=== PATIENT | male | born 1935 | race Caucasian/White ===

== ENCOUNTER → 2016-10-13 | Outpatient (CLI) | payer OTHER, MEDICARE ==
[~2016-10-13] VITALS: Ht 172.7 cm; Wt 92.5 kg
[~2016-10-13] MED LIST: AMLODIPINE BESYL5 MG PO; APAP650 PO; ATIVAN1 MG PO; CENTRUM SILVER1 EAC4 PO; CHONDROITIN SU250 MG PO; FLOMAX0.4 MG PO; GLUCOSAMINE HC500 MG PO; IRON325 PO; KEFLEX500 MG PO; LOPRESSOR50 PO; NORVASC5 MG
--- NOTE | ~2016-10-13 | H ---
[facility] [place] [address] HISTORY AND PHYSICAL Name: BENY BOX SHAMA Room #: REG CLDamaris Mia.#: [id number] Admission: 10/13/16 Attend Phys: Akil Wong MD Discharge: Date of : 35 Report #: [id number] THIS REPORT FOR: //name// CC: Hero Wong DATE OF SERVICE: 10/13/2016 Followup visit for low back pain with radiculopathy in the right. HISTORY OF PRESENT ILLNESS: The patient had one month of excellent pain relief following a single epidural injection. Pain gradually returned over the course of 09/2016. It is now about 50% improved over his previous injection, but seems like it is coming right back to the same spot. They would like to avoid any surgery on his back. He takes only Tylenol for pain. In the interval since he was last here, he saw Dr. Moore. He was referred to Dr. Jason Roberson because of the discovery of two renal masses. He describes one is the size of a ping pong ball and the other is the size of a golf ball! Apparently, Dr. Roberson will try to perform an interventional procedure, I suspect some sort of radiofrequency. I do not have cell type. Additional scanning was performed and showed that was no metastatic disease. He otherwise feels well except for his back. He would like to repeat his injection today. MEDICATIONS: Multivitamins, lorazepam, amlodipine, tamsulosin, metoprolol. ALLERGIES: KETOROLAC CAUSES EXCESSIVE BLEEDING. 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 He is also under treatment for hypertension. He has mild nocturia. He ambulates and is not a fall risk. He is active in his yard ____ fall. PHYSICAL EXAMINATION: VITAL SIGNS: Blood pressure 150/77, heart rate 77, respirations 16. His BMI is 31.0. GENERAL: He is a delightful lor. EXTREMITIES: He moves from sitting to standing position, ambulates without difficulty. He has pain across his low back with flexion and extension. Tenderness into the right hip with straight leg raising. IMPRESSION: Spinal stenosis at L5-S1 with radiculopathy. PROCEDURE: Lumbar epidural steroid injection L5-S1 under fluoroscopic guidance. [address] [address] HISTORY AND PHYSICAL Name: BENY BOX [place] Room #: REG [facility] [place]#: [id number] Admission: 10/13/16 Attend Phys: Akil Wong MD Discharge: Date of : 35 Report #: [id number] PROCEDURE IN DETIAL: The patient was taken to the fluoroscopic suite, placed prone, skin prepped with ChloraPrep. Skin was anesthetized over L5-S1. A 20-gauge Tuohy epidural needle advanced nicely into the epidural space with loss of resistance, there was no blood or CSF aspirated. 1 mL of Omnipaque was injected with excellent spread of dye observed into the epidural space followed by 3 mL of 0.5% lidocaine mixed with 80 mg of triamcinolone. He tolerated the procedure well and was observed for 45 minutes and discharged. Followup visit scheduled in the pain clinic on an as needed basis. <ELECTRONICALLY SIGNED> By: Akil Wnog MD 10/15/16 1329 0904 [id number] kAil Wong MD /nt
[2016-10-13 08:16] VITALS: BP 150/77
== END | disposition home or self-care (01) ==
LOC: PAIN 09-15 07:19
DX: M48.06 Spinal stenosis, lumbar region (principal); G47.33 Obstructive sleep apnea (adult) (pediatric)

== ENCOUNTER → 2019-01-31 | Outpatient (CLI) | payer OTHER, MEDICARE ==
[~2019-01-31] VITALS: Ht 175.3 cm; Wt 95.3 kg
[~2019-01-31] MED LIST changes: -AMLODIPINE BESYL5 MG PO; +MYRBETRIQ50 MG PO; +NORVASC5 MG PO; +OSTEO BI-FLEX1 EAC1 PO
--- NOTE | 2019-02-01 14:06 | PATH ---
[facility] [address] [place] [address] PATHOLOGY RPT PROCEDURE Name: PEDRITO BOX Room #: REG MELDamaris Bellamy.#: [id number] ������������������ Admission: 01/31/19 ������������������ Date of : 35 Discharge: Report #: [id number] Path Case #: [id number] [facility] Accession Number: [id number] . 01 Material submitted: . colon - RANDOM COLON BX . 01 Clinical history: . Pre-op diagnosis: Diarrhea Post-op diagnosis: Diverticulosis, internal hemorrhoids, history of diarrhea R/O microscopics, colitis . 02 Diagnosis: Large intestinal mucosa, random colon, endoscopic biopsy: - Mild focal acute cryptitis. - Negative for microscopic colitis. - Negative for dysplasia or malignancy. (IUV:callie; 02/01/2019) QMS/02/01/2019 . 02 Comment: Sections of the colonic mucosa designated "random colon" show focal cryptitis, and a moderately cellular lamina propria composed predominantly of lymphocytes and plasma cells and occasional eosinophils. Surface ulceration is not identified. There are no crypt abscesses, granulomas or viral inclusions. Given the description, the differential diagnosis includes mild focal active colitis of self-limited etiology, infectious etiology, a resolving episode of colitis, acute diverticulitis, or medication-induced colitis. Please correlate with clinical as well as endoscopic findings. (IUV:callie; 02/01/2019) . 02 Electronically signed: . Claudia Mart MD, Pathologist NPI- [id number] . 01 Gross description: . The specimen is received in formalin, labeled "Pedrito Box random colon biopsy, R/O microscopic colitis". Received is are eight segments of pale bustamante soft tissue ranging in size from 0.1 to 0.6 cm in maximum dimensions. The specimen is submitted entirely in cassette A1. (CAA; 01/31/2019) QAC/QAC . 02 Pathologist provided ICD-10: K63.9, R19.7 [place] [id number] PATHOLOGY RPT PROCEDURE Name: PEDRITO BOX [place] [facility] [id number] ������������������ Admission: 01/31/19 ������������������ Date of : 35 Discharge: Report #: [id number] Path Case #: [id number] . 02 [facility] . [id number] Specimen Comment: A courtesy copy of this report has been sent to Specimen Comment: [phone], . Specimen Comment: Report sent to / DR CAMPOS Performed at: [address] [facility], [place], [place] [id number] MD Gil Valencia MD Phone: [phone] Performed at: [address] [facility] [id number] MD Claudia Mart MD Phone: [phone]
--- NOTE | 2019-02-02 08:08 | P ---
[facility] [place] [address] [place] [address] PROCEDURE REPORT Name: CHARUSWANDOT SESAY Room #: REG [facility] [place]#: [id number] Admission: 01/31/19 ������������������ Attend Phys: Kodak Rowe Discharge: ������������������ Date of : 35 Report #: [id number] THIS REPORT FOR: //name// CC: Alonzo Iraheta DATE OF SERVICE: 01/31/2019 PROCEDURE PERFORMED: Flexible sigmoidoscopy with biopsies. HISTORY OF PRESENT ILLNESS: The patient is an 83-year-old male with previous history of GI bleed in 2016, who underwent EGD, colonoscopy and M2 capsule at that time. He was noted to have a pandiverticulosis, likely a diverticular bleed at that time. CT arteriogram was essentially negative. M2 capsule was normal of the small bowel. He now denies any bleeding, but began having an acute episode of diarrhea on 01/20/2019, which lasted approximately one week. He has improved at this time. He again denies any bleeding recently. No recent treatment with antibiotics. No family history of colon cancer. He did have crampy abdominal pain for a period of time, but now this has resolved. Plan is for flexible sigmoidoscopy. DESCRIPTION OF PROCEDURE: The risks and benefits of the procedure were explained to the patient, those risks including but not limited to bleeding, perforation, and the risk of sedation. He understood these risks and gave informed consent. Sedation was given using propofol per anesthesia. Next, a digital rectal exam was initially performed, which was normal. Next, using a standard Olympus colonoscope, the scope was placed in the patient's anus and advanced under direct vision to the proximal ascending colon. I could view most of the ascending colon, which appeared normal. Pandiverticulosis was noted again through the ascending, transverse, descending and sigmoid colon, multiple diverticula, but no stigmata of bleeding or inflammation. No polyps were noted. No evidence of colitis. Biopsies were obtained to rule out the possibility of microscopic colitis. The rectal mucosa was normal. On retroflexion, small nonbleeding internal hemorrhoids were noted. The scope was then withdrawn and the procedure terminated. The patient tolerated the procedure well. IMPRESSION: 1. Pandiverticulosis. 2. Small internal hemorrhoids. 3. Otherwise, normal flexible sigmoidoscopy. RECOMMENDATIONS: 1. Await biopsy results. 2. There has been no further reports of diarrhea, suspect this may have been an infectious etiology, has now resolved. If diarrhea returns, consider stool [address] [address] PROCEDURE REPORT Name: BOXBENY Room #: REG [facility].#: [id number] Admission: 01/31/19 ������������������ Attend Phys: Kodak Rowe Discharge: ������������������ Date of : 35 Report #: [id number] studies or further workup. Thank you for allowing me to participate in his care. ��������������������������������������������� <ELECTRONICALLY SIGNED> ���������������������������������������� By: Kodak Johnson MD ��������������������������������������������� 02/02/19 0808 0910 1926 Kodak Johnson MD /nt
== END | disposition home or self-care (01) ==
LOC: GI 07:16
DX: K62.89 Other specified diseases of anus and rectum (principal); K57.30 Diverticulosis of large intestine without perforation or abscess without bleeding; K64.8 Other hemorrhoids; I10 Essential (primary) hypertension; F41.9 Anxiety disorder, unspecified; G47.33 Obstructive sleep apnea (adult) (pediatric); Z98.890 Other specified postprocedural states; Z90.49 Acquired absence of other specified parts of digestive tract; Z79.899 Other long term (current) drug therapy; Z85.528 Personal history of other malignant neoplasm of kidney; Z88.8 Allergy status to other drugs, medicaments and biological substances
CPT/HCPCS: 62110; 62900

== ENCOUNTER 2020-10-01 09:43 | Emergency (ER) | payer OTHER, MEDICARE ==
[~2020-10-01] VITALS: Ht 172.7 cm; Wt 90.7 kg
[2020-10-01 12:15] VITALS: BP 163/89
== END 2020-10-01 12:38 | disposition home or self-care (01) ==
LOC: ER 09:43
DX: R04.0 Epistaxis (principal); I10 Essential (primary) hypertension; Z88.6 Allergy status to analgesic agent; Z79.899 Other long term (current) drug therapy; Z90.49 Acquired absence of other specified parts of digestive tract; Z85.528 Personal history of other malignant neoplasm of kidney